=== PATIENT | female | born 1945 | race Caucasian/White ===

== ENCOUNTER → 2016-05-31 | Outpatient (CLI) | payer MEDICARE, BC | END | disposition home or self-care (01) | LOC: PCVCIMAG 08:55 | PROVIDERS: ATTEND Internal Medicine | DX: R07.9 Chest pain, unspecified (principal); E78.5 Hyperlipidemia, unspecified; F48.8 Other specified nonpsychotic mental disorders; M81.0 Age-related osteoporosis without current pathological fracture; E03.9 Hypothyroidism, unspecified | CPT/HCPCS: 78452; 93017; A9500 ==